=== PATIENT | female | born 1940 | race African-American/Black ===

== ENCOUNTER 2016-10-26 06:08 | Observation (INO) | payer BC ==
[~2016-10-26 06:08] MED LIST: ARICEPT10 PO; ASAB PO; DIOVAN320 MG PO; KLONO5 PO; MELATONIN5 M1 PO; MIRAPEX ER4.5 MG PO; MIRAPEX1 MG PO; MULTIVIT/MIN PO; MYRBETRIQ25 MG PO; NORV10 PO; OS500+D PO; PRAV10 PO; SIN25 PO; SYSTANE OPH; ZANTAC300 MG PO; ZOL100 PO
[2016-10-26 06:53] LABS: BASOPHILS 0.2 %; BASOPHILS ABSOLUTE 0.01 10/3/uL (0.0-0.16); EOSINOPHILS ABSOLUTE 0.06 10/3/uL (0.0-0.53); HEMATOCRIT 41.8 % (36.0-48.0); HEMOGLOBIN 13.9 g/dL (12.0-16.0); IMMATURE GRANULOCYTES 0.2 %; IMMATURE GRANULOCYTES ABSOLUTE 0.01 10/3/uL (0.0-0.11); LYMPHOCYTES 29.7 %; LYMPHOCYTES ABSOLUTE 1.84 10/3/uL (0.67-4.30); MEAN CORPUS HGB CONC 33.3 g/dL (32.0-36.0); MEAN CORPUSCULAR HEMOGLOB 29.9 pg (26.0-34.0); MEAN CORPUSCULAR VOLUME 89.9 fL (80-100); MEAN PLATELET VOLUME 10.3 fL (9.2-13.0); MONOCYTES 5.8 %; MONOCYTES ABSOLUTE 0.36 10/3/uL (0.21-1.20); NEUTROPHILS 63.1 %; NEUTROPHILS ABSOLUTE 3.92 10/3/uL (2.02-8.40); PLATELET COUNT 231 10/3/uL (150-400); RBC DISTRIBUTION WIDTH 14.1 % (12.0-16.0); RED CELL COUNT 4.65 10/6/uL (4.0-5.6); WHITE BLOOD CELLS 6.2 10/3/uL (4.5-10.5)
[2016-10-26 06:55] LABS: MANUAL DIFF NO %
[2016-10-26 07:07] LABS: BUN (BLOOD UREA NITROGEN) 11 MG/DL (6-23); CALCIUM, SERUM 8.9 MG/DL (8.5-10.4); CHLORIDE, SERUM 108 MMOL/L (96-112); CHOL/HDL RATIO(NOT ORDER) 3.5 (0-5); CHOLESTEROL 180 MG/DL (< 200); CO2 (CARBON DIOXIDE) 26 MMOL/L (24-34); GFR AFRICAN AMERICAN 71 ML/MIN (>=60); GFR NON AFRICAN AMERICAN 61 ML/MIN (>=60); GLUCOSE, SERUM 103 MG/DL (60-99); HDL CHOLESTEROL 52 MG/DL (> 49); LDL CHOLESTEROL 49 MG/DL (< 130); NON-HDL CHOLESTEROL 128 MG/DL (< 160); POTASSIUM, SERUM 3.7 MMOL/L (3.5-5.3); SODIUM, SERUM 144 MMOL/L (135-148); TRIGLYCERIDE 398 MG/DL (< 150)
[2016-10-26] MEDS ORDERED: COREG3 PO (07:18)
[2016-11-10] MEDS ORDERED: RANITIDINE300 MG PO (12:11)
[2016-11-10] MEDS ORDERED: ZYRTEC ALLGY10 MG PO (12:11)
== END 2016-10-27 15:02 | disposition home or self-care (01) ==
LOC: CORLMH 06:08 → SSU1 06:14
PROVIDERS: Internal Medicine Cardiovascular Disease
PROC: 4A023N7 Measurement of Cardiac Sampling and Pressure, Left Heart, Percutaneous Approach (ICD-10-PCS; principal; 2016-10-26)
PROC: B2151ZZ Fluoroscopy of Left Heart using Low Osmolar Contrast (ICD-10-PCS; 2016-10-26)
DX: I20.0 Unstable angina (principal); I10 Essential (primary) hypertension; F32.9 Major depressive disorder, single episode, unspecified; K21.9 Gastro-esophageal reflux disease without esophagitis; G20 Parkinson's disease; F41.9 Anxiety disorder, unspecified; E78.2 Mixed hyperlipidemia; Z79.82 Long term (current) use of aspirin; Z79.899 Other long term (current) drug therapy; Z90.710 Acquired absence of both cervix and uterus
CPT/HCPCS: 36120; 80048; 80061; 85025; 85347; 93005; 93458; 93571; 99152; 99153; A9270-GY; C1769; C1887; C1894; G0378; J0153; J2250; J3010; Q9967

== ENCOUNTER 2016-11-15 20:24 | Inpatient (IN) | payer BC ==
--- NOTE | ~2016-11-15 | CN ---
Consultation Report [place] [id number] [facility] [place]. [address] NAME: GINO LONDON : 38 STATUS : ADM IN PAT#: [id number] AGE: 76 ADM/REG DATE : 11/15/16 MR#: [id number] REPORT SERV DATE: 11/20/16 DICTATED BY: DEBO LEY DATE: 11/20/16 REPORT STATUS : Draft TRANSCRIBED BY: TYSON DATE: 11/20/16 CONSULTATION DATE OF CONSULTATION: 11/20/2016 REASON FOR CONSULTATION: Weakness. HISTORY OF PRESENT ILLNESS: The patient is a very pleasant 76-year-old female. She has an underlying history of Parkinson disease. She recently was enrolled in home physical therapy as she has had some difficulty with ambulation. She states she was doing well. She came in for an elective endoscopy and dilatation and suffered a Quin- House tear for which she had hematemesis and some hypotension. Ultimately, she improved, she is now on the floor. She is quite comfortable, really without complaints today and is ready for discharge. She denies chest pain. Denies shortness of breath. Denies cough. Denies fever. Denies abdominal pain. Denied nausea, vomiting, or diarrhea. She denies any new real focal weakness. She states she is just generally weak when she gets up to ambulate. She has not been able to ambulate independently, but they have really pushed her to ambulate in the last six days and today is really the first day they have tried to consistently get her up and get her moving and they had difficulty. We were asked to come in and give an opinion regarding her ambulation. She has a walker at home, but she does not use it. She has previously had a cane, but also does not use that. Otherwise, she is previously fairly independent. PAST MEDICAL HISTORY: 1. Parkinson's. 2. CAD. 3. Hypertension. 4. Hyperlipidemia. 5. Depression. 6. Recent Quin-House tear. 7. Situational depression. SOCIAL HISTORY: She is a nondrinker, nonsmoker. She lives independently. FAMILY HISTORY: Negative for any premature coronary artery disease. ALLERGIES: NO KNOWN DRUG ALLERGIES. HOME MEDICATIONS: Reviewed and attached. REVIEW OF SYSTEMS: Full 10-point review of systems obtained. Pertinent positives are mentioned in the HPI. PHYSICAL EXAMINATION: Consultation Report [place] [id number] [place]. [address] NAME: GINO LONDON : 38 STATUS : ADM IN PAT#: [id number] AGE: 76 ADM/REG DATE : 11/15/16 MR#: [id number] REPORT SERV DATE: 11/20/16 DICTATED BY: DEBO LEY DATE: 11/20/16 REPORT STATUS : Draft TRANSCRIBED BY: TYSON DATE: 11/20/16 VITAL SIGNS: BP 131/71 and 123/65, temperature 98.4 with a T-max of 98.8, respiratory rate 22, sats 96% on room air. GENERAL: Well-developed, female, in no apparent distress. HEENT: Normocephalic, atraumatic. Throat is clear. Cranial nerves 2 through 12 were intact. NECK: Supple. HEART: Regular rate and rhythm with a 1/6 systolic murmur. LUNGS: Grossly clear. ABDOMEN: Soft, nontender, nondistended. EXTREMITIES: Warm and dry. Skin is intact. She has 2+ pulses in her feet. She has no peripheral edema. NEUROLOGIC: She has symmetrical strength and tone in upper extremities. In her lower extremities, she has a very discrete left-sided leg weakness of 4/5 and 5/5 strength in the right leg. She states this weakness is not new. Her daughter was confirmed that this is an old issue and not new today. Her speech is intact. She is alert. She is oriented to person, place, and time. LABORATORY AND X-RAY STUDIES: Her last electrolyte panel was on the . Her sodium was 145, BUN and creatinine 23 and 0.82, potassium 4.1, and glucose of 100. Her last H and H this morning were 11.5 and 34.8. She had a chest x-ray on the which was negative. ASSESSMENT/PLAN: 1. Debility/deconditioning. I suspect the patient is deconditioned from being in bed for the last six days. She has no real focal signs. I would like to however rule out some metabolic derangements which could cause some weakness. We will check her electrolyte panel to rule out hyponatremia or any associated new renal insufficiency. We will also check her urine for urinary tract infection. Also check her white count. If all this is negative, we would proceed with physical therapy. We will allow them to do a full assessment on her and determine whether or not she needs a short-term rehab stay at discharge rather than going home or whether or not she could continue her home physical therapy. She is currently afebrile and quite stable with no real symptomatology and she is continued on her regular Parkinson's medications without interruption. 2. Parkinson's. Continue Sinemet. Continue Mirapex. She has been on these medications for some time. We will see how she does with physical therapy. 3. Recent Quin-House tear and GI bleed, stable, improved. 4. DVT prophylaxis. SCDs were placed by the primary team. 5. History of hypertension. Currently, her blood pressure looks great today, but I am going to check some orthostatics to make sure she does not have orthostatic symptoms contributing to her weakness. 6. History of coronary artery disease, stable, chronic. 7. Disposition. Pending above. SANDRA/TYSON Consultation Report [address] [place]. [address] NAME: GINO LONDON : 38 STATUS : ADM IN PAT#: [id number] AGE: 76 ADM/REG DATE : 11/15/16 MR#: [id number] REPORT SERV DATE: 11/20/16 DICTATED BY: DEBO LEY DATE: 11/20/16 REPORT STATUS : Draft TRANSCRIBED BY: TYSON DATE: 11/20/16 Debo Ley M.D. / [id number] CC: Rocky Sheppard M.D.
--- NOTE | ~2016-11-15 | DS ---
Discharge Summary [facility] [address] [place]. [address] NAME: GINO LONDON : 38 STATUS : ADM IN [facility]#: [id number] AGE: 76 ADM/REG DATE : 11/15/16 MR#: [id number] REPORT SERV DATE: 11/22/16 DICTATED BY: POLA VALDES DATE: 11/21/16 REPORT STATUS : Draft TRANSCRIBED BY: MODLacie DATE: 11/21/16 ADMISSION DATE: 11/15/2016 DISCHARGE DATE: DISCHARGE DIAGNOSES: 1. Upper gastrointestinal bleed secondary to Quin-House tear. 2. History of esophageal stricture dilated. 3. Parkinson disease. 4. Coronary artery disease. 5. Deconditioning. CASE HISTORY: This patient had an EGD and dilatation on the morning of admission. She had no bleeding after the procedure. She went home and ate. Later, she began having vomited up some bright red blood. On admission, her blood pressure was 115/60. She was warm and dry, was sitting up, conversant. Admitting hemoglobin was 9.9. HOSPITAL COURSE AND ASSESSMENT: The patient underwent emergency EGD. There was a tear in the distal esophagus just above the EG junction. There was adherent clot. Some oozing of blood. The area was injected with epinephrine 1:10,000 for total of 8 mL and then Endoclip was placed. The patient was monitored in the ICU. On 11/16/2016, she was doing well. She was given her Coreg which she has used for coronary artery disease. She dropped her pressure down to 70 without signs of bleeding. Her hemoglobin had dropped from 8.9 to 8.3 in the 8 hours. Hospital sorting machine operator was consulted, but it was felt that she did not have bleeding, but rather it was probably the effect of the Coreg and she was relatively hypovolemic. She was given fluid resuscitation and was placed on a Levophed drip. She did well. Hemoglobin increased. She was transferred to the floor. Her blood pressure going up to 133/64. Her hemoglobin stabilized at about 11.3 level. Her electrolytes were good. She did have some difficulty with ambulation, probably deconditioning related to the Parkinson's. Dr. Joann Resendiz was consulted and felt that this was probably related to deconditioning. She was swallowing better after the dilatation. Plan is to evaluate for possible physical therapy at [facility] or other rehab hospital. DISCHARGE MEDICATIONS: Aricept 10 mg daily, Myrbetriq 25 mg, Mirapex ER 3.75 mg, Norvasc 10 mg daily, Pravachol 20 mg a day, Protonix 40 mg p.o. b.i.d., Sinemet 25/100, 1.5 tabs 4 times a day, Sinemet 25/100 one tab at bedtime, and Zoloft 100 mg daily. CONDITION: Improved. Hopefully, we will continue to have progressive improvement and sustained improvement in her dysphagia. She will be maintained on a mechanical soft diet. MG/MODL Pola Discharge Summary [address] [place]. [address] NAME: GINO LONDON : 38 STATUS : ADM IN PAT#: [id number] AGE: 76 ADM/REG DATE : 11/15/16 MR#: [id number] REPORT SERV DATE: 11/22/16 DICTATED BY: POLA VALDES DATE: 11/21/16 REPORT STATUS : Draft TRANSCRIBED BY: TYSON DATE: 11/21/16 Rocky Valdes / [id number] CC: Rocky Sheppard M.D.
--- NOTE | ~2016-11-15 | CN ---
Consultation Report [facility] [address] [place]. [address] NAME: GINO LONDON : 38 STATUS : ADM IN [facility]#: [id number] AGE: 76 ADM/REG DATE : 11/15/16 MR#: [id number] REPORT SERV DATE: 11/16/16 DICTATED BY: YANIQUE CAMEJO DATE: 11/16/16 REPORT STATUS : Draft TRANSCRIBED BY: MODL DATE: 11/16/16 CONSULTATION DATE OF CONSULTATION: 11/16/2016 REASON FOR CONSULTATION: Shock and vasopressor management. HISTORY OF PRESENT ILLNESS: The patient is a 76-year-old, female with past medical history of Parkinson disease, coronary artery disease, and hypertension, who initially was admitted to the MICU yesterday after she had some upper GI bleeding following endoscopy with esophageal dilatation by Dr. Ascencio yesterday. Post endoscopy, she had some vomiting of blood and was admitted to the ICU and had a repeat endoscopy, which showed a Quin-House tear. Overnight, she was stable, had no further bleeding but this morning had several dark bowel movements and then had her blood pressure dropped to systolic in the 60s, which was unresponsive to fluids, and we are consulted to assist in the management of her shock. Her hemoglobin has remained stable today and otherwise, she says she is feeling well. No fevers. No mental status changes. PAST MEDICAL HISTORY: 1. Parkinson disease. 2. Hypertension. 3. Coronary artery disease. 4. Hyperlipidemia. 5. Depression. HOME MEDICATIONS: See medication reconciliation form. ALLERGIES: NO KNOWN DRUG ALLERGIES. SOCIAL HISTORY: No tobacco, alcohol, or IV drug abuse. FAMILY HISTORY: Reviewed and negative for coronary disease. REVIEW OF SYSTEMS: 10-point review of systems is negative except as mentioned in the HPI. PHYSICAL EXAMINATION: VITAL SIGNS: Temperature is 97.9, heart rate 72, respiratory rate 29, blood pressure 72/45. GENERAL: Elderly, chronically ill-appearing female, in no acute distress. HEENT: Pupils equal, round, and reactive to light. Extraocular movements are intact. Oropharynx clear. Moist mucous membranes. NECK: Supple. Nontender. No lymphadenopathy. No thyromegaly. No jugular venous distention. LUNGS: Clear to auscultation bilaterally. Consultation Report [facility] [address] [facility] [place]. [address] NAME: GINO LONDON : 38 STATUS : ADM IN PAT#: [id number] AGE: 76 ADM/REG DATE : 11/15/16 MR#: [id number] REPORT SERV DATE: 11/16/16 DICTATED BY: YANIQUE CAMEJO DATE: 11/16/16 REPORT STATUS : Draft TRANSCRIBED BY: TYSON DATE: 11/16/16 CARDIOVASCULAR: Regular rate and rhythm. No murmurs, rubs, or gallops. ABDOMEN: Soft, nontender, nondistended. Positive bowel sounds. No hepatosplenomegaly. EXTREMITIES: No cyanosis, clubbing, or edema. NEUROLOGIC: Alert and oriented x2. Cranial nerves intact. PSYCH: Mood appropriate. LABS AND IMAGING: Hemoglobin 8.2 down from 8.8 this morning. Metabolic profile is unremarkable. CBC with a white count of 11. ASSESSMENT AND PLAN: The patient is a 76-year-old female with past medical history of coronary artery disease, Parkinson disease, hypertension, who is now status post GI bleed from Quin-House tear secondary to esophageal dilatation now with shock, likely hypovolemic from recent bleed. We will place a PICC line and continue IV fluid resuscitation. We will start Levophed if needed to maintain a MAP greater than 65. We will continue trending her hemoglobin and hematocrit and leave transfusions and/or further intervention from a GI standpoint to Dr. Ascencio. We will continue follow along closely with you. Please call with questions. I appreciate the consult. Total critical care time spent on this patient was 35 minutes. JANET Yanique Camejo MD / [id number] CC: Pola Ascencio M.D. Leonarda Arzate M.D.
--- NOTE | ~2016-11-15 | CN ---
Consultation Report [place] [address] [place]. [address] NAME: GINO LONDON : 38 STATUS : ADM IN PAT#: [id number] AGE: 76 ADM/REG DATE : 11/15/16 MR#: [id number] REPORT SERV DATE: 11/16/16 DICTATED BY: POLA VALDES. DATE: 11/15/16 REPORT STATUS : Draft TRANSCRIBED BY: MODL DATE: 11/15/16 CONSULTATION DATE OF CONSULTATION: 11/15/2016 CHIEF COMPLAINT: Hematemesis. HISTORY OF PRESENT ILLNESS: This patient had an EGD and dilatation today. Four to five hours of the procedure, began getting some nausea and vomiting up some blood. She has vomited up small amounts of blood in the emergency room here. She denies any orthostatic dizziness. She denies any chest pain. PAST MEDICAL HISTORY: Nonsmoker. Parkinson disease. PHYSICAL EXAMINATION: VITAL SIGNS: Blood pressure 105/60. SKIN: Warm and dry. HEENT: Pupils are equal and reactive to light. Trachea midline. NECK: No adenopathy or thyroidal increase. CHEST: Clear to auscultation and percussion. CARDIAC: Normal. ABDOMEN: Soft, nontender. EXTREMITIES: Without deformity or edema. PSYCHIATRIC: Affect is appropriate. LABORATORY DATA: Hemoglobin 11.9. IMPRESSION: Upper gastrointestinal bleed, status post dilatation, probably Quin-Huose tear. PLAN: 1. IV fluids. 2. EGD with possible control of bleeding. MG/MODL Pola Valdes M.D. / [id number] CC: Consultation Report [place] [address] [place]. [address] NAME: GINO LONDON : 38 STATUS : ADM IN PAT#: [id number] AGE: 76 ADM/REG DATE : 11/15/16 MR#: [id number] REPORT SERV DATE: 11/16/16 DICTATED BY: POLA VALDES DATE: 11/15/16 REPORT STATUS : Draft TRANSCRIBED BY: MODL DATE: 11/15/16 Pola Valdes M.D. TIMMY VASQUEZ
--- NOTE | ~2016-11-15 | EGD ---
EGD REPORT [facility] [address] [address] NAME: MELODY LONDON : 38 STATUS : ADM IN PAT#: [id number] AGE: 76 ADM/REG DATE : 11/15/16 MR#: [id number] REPORT SERV DATE: 11/15/16 DICTATED BY: POLA VALDES DATE: 11/15/16 REPORT STATUS : Draft TRANSCRIBED BY: [employer] DATE: 11/15/16 [facility] Patient Name: Melody London Date of : 1940 Attending MD: POLA VALDES MD Procedure Date No Time: 11/15/2016 Procedure: Upper GI endoscopy Indications: Hematemesis Medicines: General Anesthesia Complications: No immediate complications. Procedure: Pre-Anesthesia Assessment: - ASA Grade Assessment: IV - A patient with severe systemic disease that is a constant threat to life. After obtaining informed consent, the endoscope was passed under direct vision. Throughout the procedure, the patient's blood pressure, pulse, and oxygen saturations were monitored continuously. The GIF [id number] was introduced through the mouth, and advanced to the duodenal bulb. The upper GI endoscopy was accomplished without difficulty. The patient tolerated the procedure well. Findings: One cratered esophageal ulcer with oozing blood and stigmata of recent bleeding was found in the lower third of the esophagus. Area was successfully injected with 8 mL of a 1:10,000 solution of epinephrine for hemostasis. One hemostatic clip was successfully placed. There was no bleeding at the end of the procedure. The exam of the stomach was otherwise normal. The exam of the duodenum was otherwise normal. Impression: - Bleeding esophageal ulcer. Injected. Clip was placed. Recommendation: - Return patient to ICU for ongoing care. - The findings and recommendations were discussed with the patient's family. Procedure Code(s): --- Professional --- 38783, Esophagogastroduodenoscopy, flexible, transoral; with control of bleeding, any method Diagnosis Code(s): --- Professional --- K22.11, Ulcer of esophagus with bleeding K92.0, Hematemesis EGD REPORT [address] [facility] [place]. [address] NAME: MELODY LONDON : 38 STATUS : ADM IN [facility]#: [id number] AGE: 76 ADM/REG DATE : 11/15/16 MR#: [id number] REPORT SERV DATE: 11/15/16 DICTATED BY: POLA VALDES. DATE: 11/15/16 REPORT STATUS : Draft TRANSCRIBED BY: [employer] DATE: 11/15/16 CPT copyright 2013 [employer]. All rights reserved. The codes documented in this report are preliminary and upon diesel service journeyman review may be revised to meet current compliance requirements. Pola Valdes MD POLA VALDES MD 11/15/2016 11:05 PM This report has been signed electronically. Number of Addenda: 0 Note Initiated On: 11/15/2016 10:[address] [place], [place] [address]al[address] [place] [address]
--- NOTE | ~2016-11-15 | DS ---
Discharge Summary [facility] [address] [place]. [address] NAME: GINO LONDON : 38 STATUS : DIS IN PAT#: [id number] AGE: 76 ADM/REG DATE : 11/15/16 MR#: [id number] REPORT SERV DATE: 11/23/16 DICTATED BY: POLA VALDES DATE: 11/22/16 REPORT STATUS : Draft TRANSCRIBED BY: MODL DATE: 11/22/16 ADMISSION DATE: 11/15/2016 DISCHARGE DATE: 11/22/2016 ADDENDUM: 1. Quin-House tear after esophageal dilatation, stable. 2. Hypertension. 3. Weakness, cachexia. 4. Parkinson's. SUMMARY: This is in addition to the previous discharge summary dated 11/21/2016. The patient was evaluated by Physical Therapy and recommended inpatient rehabilitation probably at [facility]. She had no more bleeding. Hemoglobin stabilized at 11.5. DISCHARGE MEDICATIONS: Include: 1. Carbidopa 25/100 one p.o. at bedtime. 2. Carvedilol 3.125 b.i.d. 3. Aricept 10 mg daily. 4. Mirapex ER as directed. 5. Myrbetriq 25 mg every 24 hours. 6. Pravastatin 10 mg daily. 7. Zoloft 100 mg. 8. Baby aspirin. 9. Clonazepam 0.5 mg twice a day p.r.n. MG/MODL Pola Valdes M.D. / [id number] CC: Rocky Sheppard M.D.
--- NOTE | ~2016-11-15 | OP ---
Record Of Operation [facility] [address] [place]. [address] NAME: GINO LONDON : 38 STATUS : ADM IN [facility]#: [id number] AGE: 76 ADM/REG DATE : 11/15/16 MR#: [id number] REPORT SERV DATE: 11/16/16 DICTATED BY: POLA VALDES DATE: 11/15/16 REPORT STATUS : Draft TRANSCRIBED BY: MODL DATE: 11/15/16 DATE OF PROCEDURE: PROCEDURE: Esophagogastroduodenoscopy, control bleeding. INDICATION: The patient with dilatation in the morning, hematemesis tonight. SEDATION: Diprivan. FINDINGS: Olympus high definition scope was passed after intubation. There was a tear in the distal esophagus just above the EG junction. There was adherent clot and some oozing. The area was injected with epinephrine 1:10,000 for a total of 8 mL. Endoclip was placed over part of the tear. The rest of the stomach and duodenum were normal. IMPRESSION: Tear at the site of the dilatation with bleeding with adherent clot. Treated with epinephrine and Endoclip. PLAN: Observe in ICU overnight. MG/MODL Pola Valdes M.D. / [id number] CC: Rocky Sheppard M.D.
[~2016-11-15 20:24] MED LIST changes: +COREG3 PO; +RANITIDINE300 MG PO; +ZYRTEC ALLGY10 MG PO
[2016-11-15 21:11] LABS: BASOPHILS 0.2 %; BASOPHILS ABSOLUTE 0.02 10/3/uL (0.0-0.16); EOSINOPHILS 0.3 %; EOSINOPHILS ABSOLUTE 0.03 10/3/uL (0.0-0.53); ER CBC TAT 0 Hrs 10 Mins; HEMATOCRIT 36.3 % (36.0-48.0); HEMOGLOBIN 11.9 g/dL (12.0-16.0); IMMATURE GRANULOCYTES 0.4 %; IMMATURE GRANULOCYTES ABSOLUTE 0.05 10/3/uL (0.0-0.11); LYMPHOCYTES 18.8 %; MANUAL DIFF NO %; MEAN CORPUS HGB CONC 32.8 g/dL (32.0-36.0); MEAN CORPUSCULAR HEMOGLOB 30.7 pg (26.0-34.0); MEAN CORPUSCULAR VOLUME 93.8 fL (80-100); MEAN PLATELET VOLUME 9.8 fL (9.2-13.0); MONOCYTES 6.3 %; MONOCYTES ABSOLUTE 0.71 10/3/uL (0.21-1.20); NEUTROPHILS ABSOLUTE 8.28 10/3/uL (2.02-8.40); PLATELET COUNT 257 10/3/uL (150-400); RBC DISTRIBUTION WIDTH 14.7 % (12.0-16.0); RED CELL COUNT 3.87 10/6/uL (4.0-5.6); WHITE BLOOD CELLS 11.2 10/3/uL (4.5-10.5)
[2016-11-15 21:20] LABS: INTERNATIONAL NORMAL RATI 1.1 UNITS (-); PARTIAL THROMBO TIME 26.8 SEC (22.5-37.2); PROTIME (NOT ORD) 14.5 SEC (12.0-14.5)
[2016-11-15 21:25] LABS: A/G RATIO 1.1 (0.7-1.9); ALBUMIN 3.5 G/DL (3.5-5.0); ALKALINE PHOSPHATASE 114 U/L (45-117); CALCIUM, SERUM 8.4 MG/DL (8.5-10.4); CHLORIDE, SERUM 108 MMOL/L (96-112); CO2 (CARBON DIOXIDE) 24 MMOL/L (24-34); CREATININE 1.01 MG/DL (0.55-1.02); GFR AFRICAN AMERICAN 62 ML/MIN (>=60); GFR NON AFRICAN AMERICAN 53 ML/MIN (>=60); GLOBULIN 3.2 G/DL (2.5-4.1); POTASSIUM, SERUM 4.2 MMOL/L (3.5-5.3); SGOT(AST) 11 U/L (5-40); SGPT(ALT) 21 U/L (5-65); SODIUM, SERUM 141 MMOL/L (135-148); TOTAL BILIRUBIN 1.5 MG/DL (0-1.2); TOTAL PROTEIN 6.7 G/DL (6.0-8.5)
[2016-11-15 21:26] LABS: BUN (BLOOD UREA NITROGEN) 27 MG/DL (6-23); GLUCOSE, SERUM 126 MG/DL (60-99)
[2016-11-15] MEDS ORDERED: CYANO1000T PO (22:01)
[2016-11-15] MEDS ORDERED: SIN25 PO (22:02)
[2016-11-15] MEDS ORDERED: ZOL100 PO (22:02)
[2016-11-15] MEDS ORDERED: SINCR25100 PO (22:02)
[2016-11-15] MEDS ORDERED: ASAB PO (22:03)
[2016-11-15] MEDS ORDERED: NORV10 PO (22:03)
[2016-11-15] MEDS ORDERED: MELATONIN10 M2 PO (22:04)
[2016-11-15] MEDS ORDERED: SYSTANE OPH (22:04)
[2016-11-15] MEDS ORDERED: PRAV10 PO (22:04)
[2016-11-15] MEDS ORDERED: ZANTAC300 MG PO (22:04)
[2016-11-15] MEDS ORDERED: CENTRUM PO (22:04)
[2016-11-15] MEDS ORDERED: DIOVAN320 MG PO (22:05)
[2016-11-15] MEDS ORDERED: MIRAPEX1 MG PO (22:06)
[2016-11-15] MEDS ORDERED: MIRAPEX ER3.75 MG PO (22:06)
[2016-11-15] MEDS ORDERED: KLONO5 PO (22:07)
[2016-11-15] MEDS ORDERED: ARICEPT10 PO (22:07)
[2016-11-15] MEDS ORDERED: ZYRTEC ALLGY10 MG PO (22:07)
[2016-11-15] MEDS ORDERED: COREG3 PO (22:08)
[2016-11-15] MEDS ORDERED: MYRBETRIQ25 MG PO (22:18)
[2016-11-16 04:57] LABS: HEMATOCRIT 27.8 % (36.0-48.0); HEMOGLOBIN 9.1 g/dL (12.0-16.0)
[2016-11-16 05:12] LABS: CALCIUM, SERUM 7.7 MG/DL (8.5-10.4); CHLORIDE, SERUM 115 MMOL/L (96-112); CO2 (CARBON DIOXIDE) 22 MMOL/L (24-34); CREATININE 0.82 MG/DL (0.55-1.02); GFR AFRICAN AMERICAN 79 ML/MIN (>=60); GFR NON AFRICAN AMERICAN 69 ML/MIN (>=60); PHOSPHORUS, SERUM 3.3 MG/DL (2.5-4.5); POTASSIUM, SERUM 4.1 MMOL/L (3.5-5.3); SODIUM, SERUM 145 MMOL/L (135-148)
[2016-11-16 05:16] LABS: BUN (BLOOD UREA NITROGEN) 23 MG/DL (6-23); GLUCOSE, SERUM 100 MG/DL (60-99)
[2016-11-16 08:26] LABS: HEMATOCRIT 26.8 % (36.0-48.0); HEMOGLOBIN 8.8 g/dL (12.0-16.0)
[2016-11-16 14:08] LABS: HEMATOCRIT 24.8 % (36.0-48.0); HEMOGLOBIN 8.2 g/dL (12.0-16.0)
[2016-11-16 23:55] LABS: HEMATOCRIT 29.8 % (36.0-48.0); HEMOGLOBIN 9.9 g/dL (12.0-16.0)
[2016-11-17 04:43] LABS: HEMATOCRIT 29.7 % (36.0-48.0); HEMOGLOBIN 9.8 g/dL (12.0-16.0)
[2016-11-17 12:58] LABS: HEMATOCRIT 31.1 % (36.0-48.0); HEMOGLOBIN 10.2 g/dL (12.0-16.0)
[2016-11-17 21:37] LABS: HEMOGLOBIN 10.4 g/dL (12.0-16.0)
[2016-11-18 07:07] LABS: HEMOGLOBIN 11.1 g/dL (12.0-16.0)
[2016-11-18 11:33] LABS: HEMATOCRIT 33.6 % (36.0-48.0); HEMOGLOBIN 11.2 g/dL (12.0-16.0)
[2016-11-18 20:13] LABS: HEMATOCRIT 32.7 % (36.0-48.0); HEMOGLOBIN 10.8 g/dL (12.0-16.0)
[2016-11-19 05:51] LABS: BASOPHILS 0.2 %; BASOPHILS ABSOLUTE 0.02 10/3/uL (0.0-0.16); EOSINOPHILS 3.2 %; EOSINOPHILS ABSOLUTE 0.31 10/3/uL (0.0-0.53); HEMATOCRIT 33.4 % (36.0-48.0); HEMOGLOBIN 11.1 g/dL (12.0-16.0); IMMATURE GRANULOCYTES 0.1 %; IMMATURE GRANULOCYTES ABSOLUTE 0.01 10/3/uL (0.0-0.11); LYMPHOCYTES 24.9 %; LYMPHOCYTES ABSOLUTE 2.44 10/3/uL (0.67-4.30); MANUAL DIFF NO %; MEAN CORPUS HGB CONC 33.2 g/dL (32.0-36.0); MEAN CORPUSCULAR VOLUME 93.3 fL (80-100); MEAN PLATELET VOLUME 10.1 fL (9.2-13.0); MONOCYTES 6.1 %; NEUTROPHILS 65.5 %; PLATELET COUNT 192 10/3/uL (150-400); RBC DISTRIBUTION WIDTH 14.6 % (12.0-16.0); RED CELL COUNT 3.58 10/6/uL (4.0-5.6); WHITE BLOOD CELLS 9.8 10/3/uL (4.5-10.5)
[2016-11-19 12:03] LABS: HEMATOCRIT 35.6 % (36.0-48.0); HEMOGLOBIN 11.5 g/dL (12.0-16.0)
[2016-11-19 20:03] LABS: HEMATOCRIT 33.1 % (36.0-48.0)
[2016-11-20 06:47] LABS: HEMATOCRIT 34.8 % (36.0-48.0); HEMOGLOBIN 11.5 g/dL (12.0-16.0)
[2016-11-20 11:41] LABS: BASOPHILS 0.2 %; BASOPHILS ABSOLUTE 0.02 10/3/uL (0.0-0.16); EOSINOPHILS 2.6 %; EOSINOPHILS ABSOLUTE 0.23 10/3/uL (0.0-0.53); IMMATURE GRANULOCYTES 0.2 %; IMMATURE GRANULOCYTES ABSOLUTE 0.02 10/3/uL (0.0-0.11); LYMPHOCYTES 21.3 %; MEAN CORPUS HGB CONC 32.6 g/dL (32.0-36.0); MEAN CORPUSCULAR HEMOGLOB 30.6 pg (26.0-34.0); MEAN CORPUSCULAR VOLUME 93.7 fL (80-100); MEAN PLATELET VOLUME 10.6 fL (9.2-13.0); MONOCYTES 6.4 %; MONOCYTES ABSOLUTE 0.57 10/3/uL (0.21-1.20); NEUTROPHILS 69.3 %; NEUTROPHILS ABSOLUTE 6.19 10/3/uL (2.02-8.40); PLATELET COUNT 226 10/3/uL (150-400); RBC DISTRIBUTION WIDTH 14.6 % (12.0-16.0); RED CELL COUNT 3.63 10/6/uL (4.0-5.6); WHITE BLOOD CELLS 8.9 10/3/uL (4.5-10.5)
[2016-11-20 11:42] LABS: MANUAL DIFF NO %
[2016-11-20 11:58] LABS: HEMATOCRIT 36.6 % (36.0-48.0); HEMOGLOBIN 12.1 g/dL (12.0-16.0)
[2016-11-20 12:09] LABS: BUN (BLOOD UREA NITROGEN) 8 MG/DL (6-23); CHLORIDE, SERUM 112 MMOL/L (96-112); CO2 (CARBON DIOXIDE) 26 MMOL/L (24-34); CREATININE 0.87 MG/DL (0.55-1.02); GFR AFRICAN AMERICAN 74 ML/MIN (>=60); GFR NON AFRICAN AMERICAN 64 ML/MIN (>=60); GLUCOSE, SERUM 111 MG/DL (60-99); POTASSIUM, SERUM 4.5 MMOL/L (3.5-5.3); SODIUM, SERUM 145 MMOL/L (135-148)
[2016-11-20 14:52] LABS: ASCORBIC ACID (UR NOT ORDER) NEG (NEG); BILIRUBIN, URINE NEGATIVE (NEG); KETONE, URINE NEGATIVE (NEG); LEUKOCYTE ESTERASE(NOT OR NEG (NEG); WBC (NOT ORDERED) (RFLEX) 2 (0-5)
[2016-11-20 21:42] LABS: HEMATOCRIT 34.8 % (36.0-48.0); HEMOGLOBIN 11.6 g/dL (12.0-16.0)
[2016-11-21 05:25] LABS: HEMATOCRIT 33.9 % (36.0-48.0); HEMOGLOBIN 11.3 g/dL (12.0-16.0)
[2016-11-22 05:03] LABS: HEMATOCRIT 34.7 % (36.0-48.0); HEMOGLOBIN 11.6 g/dL (12.0-16.0)
== END 2016-11-22 14:33 | DRG 368 ==
LOC: ER 20:24 → MIC 22:13 → 7NO 11-17 16:53
PROVIDERS: Emergency Medicine; Internal Medicine; Internal Medicine Gastroenterology
PROC: 0W3P8ZZ Control Bleeding in Gastrointestinal Tract, Via Natural or Artificial Opening Endoscopic (ICD-10-PCS; principal; 2016-11-15 22:39)
PROC: 0D738ZZ Dilation of Lower Esophagus, Via Natural or Artificial Opening Endoscopic (ICD-10-PCS; 2016-11-15 22:39)
PROC: 02HV33Z Insertion of Infusion Device into Superior Vena Cava, Percutaneous Approach (ICD-10-PCS; 2016-11-16)
PROC: 4A02X4A Measurement of Cardiac Electrical Activity, Guidance, External Approach (ICD-10-PCS; 2016-11-16)
PROC: 30233N1 Transfusion of Nonautologous Red Blood Cells into Peripheral Vein, Percutaneous Approach (ICD-10-PCS; 2016-11-16)
DX: K22.6 Gastro-esophageal laceration-hemorrhage syndrome (principal); T81.19XA Other postprocedural shock, initial encounter; R64 Cachexia; K22.11 Ulcer of esophagus with bleeding; E44.0 Moderate protein-calorie malnutrition; D62 Acute posthemorrhagic anemia; G20 Parkinson's disease; I25.10 Atherosclerotic heart disease of native coronary artery without angina pectoris; F32.9 Major depressive disorder, single episode, unspecified; E78.5 Hyperlipidemia, unspecified; E78.00 Pure hypercholesterolemia, unspecified; K21.9 Gastro-esophageal reflux disease without esophagitis; F41.9 Anxiety disorder, unspecified; I10 Essential (primary) hypertension; Z79.82 Long term (current) use of aspirin; Z79.899 Other long term (current) drug therapy; Z79.52 Long term (current) use of systemic steroids; Z98.41 Cataract extraction status, right eye; Z98.42 Cataract extraction status, left eye; Z90.710 Acquired absence of both cervix and uterus
CPT/HCPCS: 36415; 36569; 71010; 80048; 80053; 81001; 83735; 84100; 85014; 85018; 85025; 85610; 85730; 86850; 86900; 86901; 86920; 87641; 93005; 96374; 97162-GP; 99285; A9270-GY; C1751; C9113; J0330; J2370; J2405; P9016

== ENCOUNTER 2016-12-25 18:37 | Emergency (ER) | payer BC ==
[2016-12-25 13:40] LABS: BASOPHILS 0.2 %; BASOPHILS ABSOLUTE 0.01 10/3/uL (0.0-0.16); EOSINOPHILS 1.1 %; EOSINOPHILS ABSOLUTE 0.07 10/3/uL (0.0-0.53); ER CBC TAT 0 Hrs 05 Mins; HEMATOCRIT 37.3 % (36.0-48.0); HEMOGLOBIN 12.1 g/dL (12.0-16.0); IMMATURE GRANULOCYTES 0.2 %; IMMATURE GRANULOCYTES ABSOLUTE 0.01 10/3/uL (0.0-0.11); LYMPHOCYTES 26.1 %; LYMPHOCYTES ABSOLUTE 1.63 10/3/uL (0.67-4.30); MANUAL DIFF NO %; MEAN CORPUS HGB CONC 32.4 g/dL (32.0-36.0); MEAN CORPUSCULAR HEMOGLOB 29.8 pg (26.0-34.0); MEAN CORPUSCULAR VOLUME 91.9 fL (80-100); MEAN PLATELET VOLUME 10.3 fL (9.2-13.0); MONOCYTES 5.9 %; MONOCYTES ABSOLUTE 0.37 10/3/uL (0.21-1.20); NEUTROPHILS 66.5 %; NEUTROPHILS ABSOLUTE 4.15 10/3/uL (2.02-8.40); PLATELET COUNT 243 10/3/uL (150-400); RBC DISTRIBUTION WIDTH 14.4 % (12.0-16.0); RED CELL COUNT 4.06 10/6/uL (4.0-5.6); WHITE BLOOD CELLS 6.2 10/3/uL (4.5-10.5)
[2016-12-25 13:41] LABS: ASCORBIC ACID (UR NOT ORDER) NEG (NEG); BILIRUBIN, URINE NEGATIVE (NEG); ER URINALYSIS TAT 0 Hrs 11 Mins; KETONE, URINE NEGATIVE (NEG); LEUKOCYTE ESTERASE(NOT OR NEG (NEG); NITRITE (URINE) NEG (NEG); WBC (NOT ORDERED) (RFLEX) < 1 (0-5)
[2016-12-25 13:46] LABS: INTERNATIONAL NORMAL RATI 1.1 UNITS (-); PARTIAL THROMBO TIME 29.3 SEC (22.5-37.2); PROTIME (NOT ORD) 14.3 SEC (12.0-14.5)
[2016-12-25 13:56] LABS: CALCIUM, SERUM 8.6 MG/DL (8.5-10.4); CHEST PAIN PROFILE TAT 0 Hrs 21 Mins; CHLORIDE, SERUM 112 MMOL/L (96-112); CO2 (CARBON DIOXIDE) 29 MMOL/L (24-34); CREATININE 0.94 MG/DL (0.55-1.02); GFR AFRICAN AMERICAN 67 ML/MIN (>=60); GFR NON AFRICAN AMERICAN 58 ML/MIN (>=60); GLUCOSE, SERUM 100 MG/DL (60-99); POTASSIUM, SERUM 3.8 MMOL/L (3.5-5.3); SODIUM, SERUM 145 MMOL/L (135-148); TROPONIN I <0.02 NG/ML (<0.05)
[2016-12-25 13:57] LABS: BUN (BLOOD UREA NITROGEN) 19 MG/DL (6-23)
[~2016-12-25 18:37] MED LIST changes: +CENTRUM PO; +CYANO1000T PO; +MELATONIN10 M2 PO; +MIRAPEX ER3.75 MG PO; +SINCR25100 PO
== END 2016-12-25 18:45 | disposition home or self-care (01) ==
LOC: ER 18:37
PROVIDERS: Hospitalist
DX: R42 Dizziness and giddiness (principal); I10 Essential (primary) hypertension; G20 Parkinson's disease; Z79.82 Long term (current) use of aspirin; Z79.899 Other long term (current) drug therapy
CPT/HCPCS: 70450; 71020; 80048; 81001; 83735; 84484; 85025; 85610; 85730; 93005; 99284; A9270-GY